=== PATIENT | male | born 1930 | race Caucasian/White ===

== ENCOUNTER 2016-06-23 11:31 | Inpatient (IN) | payer OTHER ==
[~2016-06-23] VITALS: Ht 182.9 cm; Wt 77.5 kg
[~2016-06-23 11:31] MED LIST: ATOR10TA88 PO; ATV/1 PO; BIMA0.01 OPB; BRIN1SUS OPB; LISI-725 PO; METO-217 PO; MULT-506 PO; OMEG10007 PO; PRS5 PO; TAMS0.4C38 PO; TIMO0.5S2 OPR
[2016-06-23 12:15] LABS: HEMATOCRIT 32.6 % (42-52); MEAN CELL VOLUME 83.6 fL (80-100); MEAN CORPUSCULAR HEMOGLOBIN 27.2 pg (25-34); MEAN CORPUSCULAR HGB CONC 32.5 g/dl (32-36); PLATELET COUNT 251 K/uL (130-400); WHITE BLOOD COUNT 10.16 K/uL (4.8-10.8)
[2016-06-23] MEDS ORDERED: SODIUM CHLORIDE 0.9% 250ML 250 ML IV SCH (12:15)
[2016-06-23 12:20] LABS: URINE APPEARANCE TURBID (CLEAR); URINE BILIRUBIN NEG (NEG); URINE COLOR DK YELLOW; URINE EPITHELIAL CELL AUTO 20-30 /lpf (0-5); URINE NITRITE NEG (NEG); URINE SPECIFIC GRAVITY 1.016 (1.000-1.030); UROBILINOGEN NEG (NEG); ZZURINE CULT IF INDIC CATH YES
[2016-06-23] MEDS ORDERED: SODIUM CHLORIDE 0.9% 1000ML 1,000 ML IV STA (12:21)
[2016-06-23 12:25] LABS: BUN/CREATININE RATIO 28.4 (10-20); CALCIUM 8.8 mg/dl (8.5-10.1); CREATININE 1.3 mg/dl (0.60-1.40); INR 1.6 (0.9-1.1); PARTIAL THROMBOPLASTIN RATIO 1.2; POTASSIUM 4.2 mmol/L (3.5-5.1); PROTHROMBIN TIME (PATIENT) 17.6 SECONDS (9.0-12.0)
[2016-06-23 12:28] LABS: ALB/GLOB RATIO 0.6 (0.9-2)
[2016-06-23 12:36] LABS: MANUAL MICROSCOPIC REQUIRED? NO; REVIEW REQ? YES
--- NOTE | 2016-06-23 12:57 | DIAGNOSTIC IMAGING REPORT ---
CHEST ONE VIEW PORTABLE CLINICAL HISTORY: Weakness COMPARISON STUDY: 06/14/2016 FINDINGS: There are postsurgical changes of a midline sternotomy. The heart is the upper limits of normal in size. There is a left subclavian single chamber central venous pacemaker. The patient is hyperinflated. There have been partial clearing of the previously described right basilar airspace opacities. There are no pleural effusions.[ IMPRESSION: Resolving right lower lobe airspace opacities. Hyperinflation. Electronically signed by: Martin Elizabeth M.D. 06/23/2016 12:55 PM
[2016-06-23] MEDS ORDERED: NYST80OI TOP (13:09)
--- NOTE | 2016-06-23 13:25 | DIAGNOSTIC IMAGING REPORT ---
CT HEAD WITHOUT CONTRAST (CT) CLINICAL HISTORY: LLE weakness COMPARISON STUDY: No previous studies for comparison. TECHNIQUE: Axial CT of the brain is performed from the vertex to the skull base. IV contrast was not administered for this examination. CT DOSE: 687.98 mGy.cm FINDINGS: No intra or extra-axial mass lesions are visualized. There is no CT evidence of acute cortical infarction. There is no evidence of midline shift. There is no acute hemorrhage. No calvarial fractures are visualized. There are moderate white matter hypodensities likely on a small vessel basis. 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 There is mild ventricular dilatation, proportional to degree of volume loss. There is no evidence of acute sinusitis IMPRESSION: No acute intracranial findings Electronically signed by: Martin Elizabeth M.D. 06/23/2016 1:24 PM
--- NOTE | 2016-06-23 14:59 | EMERGENCY ROOM VISIT NOTE ---
History Report prepared by Rex: Jory Carter Under the Supervision of: Dr. Gorge Almaraz D.O. First contact with patient: 12:03 Chief Complaint: NEURO SYMPTOMS Stated Complaint: WEAKNESS Nursing Triage Summary: fall at home 6 weeks ago, blind OD since, rehab at [facility]. here a few days ago for 5 day duration diarrhea. today rolled over upon awaking and unable to use left leg. was taken to P.T[facility] still unable to walk. has right sided facial droop, but endentulous. tongue midline. EOMI, crainial #3,5,7,11,12 intact. left leg weakness on push pull and unable to lift rom bed. exposed to flu at the [facility] medic states he knows the pt and his speech is off. pt states, "something isn' t right" History of Present Illness The patient is an 85 year old male arriving by ambulance from [facility] who presents to the Emergency Room for evaluation of neurological symptoms as he experienced a sudden onset of left leg weakness at 0600 this morning. Currently , patient states that his symptoms have seemed to resolved as he is now able to lift his leg normally as he was before. At the time of onset, patient states that he woke up this morning when he was suddenly unable to move his left leg. Patient then went to physical therapy and was unable to walk secondary to his weakness, so staff sent him to the ED for further evaluation. Patient states that he currently feels "cloudy", but he denies having pain anywhere. He also denies having a headache and he states that his speech sounds normal to him. Patient denies fevers, chills, cough, neck pain, chest pain, shortness of breath , abdominal pain, nausea, vomiting, or numbness/weakness anywhere else about his body. Patient states that he has been staying at [facility] for the past 6 weeks for rehabilitation of a fall. He also notes that he was recently seen in the ED a few days ago as he experienced 4 days of diarrhea (now resolved). Notes also mention that the patient has been exposed to the flu at the therapy center. Source of History: patient, [facility] notes Onset: 0600 this morning Position: leg (left) Symptom Intensity: no current pain or discomfort Quality: other (weakness) Timing: resolved Associated Symptoms: No SOB, No abdominal pain, No chest pain, No chills, No fevers, No headache, No nausea, No neck pain, No urinary symptoms, No vomiting Note: Patient states that he feels "cloudy". Review of Systems See HPI for pertinent positives & negatives. A total of 10 systems reviewed and were otherwise negative. 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 Surgical Problems: (1) Hx of CABG Family History FH: heart disease FATHER Social History Smoking Status: Former Smoker Drug Use: none Occupation Status: retired Current/Historical Medications Scheduled Atorvastatin (Lipitor), 10 MG PO HS Bimatoprost (Lumigan), 1 DROPS OP HS Brinzolamide Oph (Azopt Oph), 1 DROP OP HS Finasteride (Finasteride), 5 MG PO DAILY Fish Oil (Noonan-3), 1 CAP PO QAM Lisinopril (Zestril), 20 MG PO QAM Lorazepam (Ativan), 1 MG PO HS Metoprolol Succinate (Toprol Xl), 50 MG PO QAM Multivitamin (Multivitamin), 1 TAB PO QAM Nystatin (Topical) (Nystatin), 1 APPLN TOP BID Tamsulosin Hcl (Flomax), 0.4 MG PO QAM Timolol Gfs 0.5% Oph (Timoptic-Xe 0.5% Oph), 1 DROP OPR HS Allergies Coded Allergies: Gabapentin (Verified Allergy, Unknown, nightmares, 06/23/16) Sulfa Antibiotics (Verified Allergy, Unknown, REDNESS,SKIN LIKE BURN, ) Tramadol (Verified Allergy, Unknown, confusion, 06/23/16) Physical Exam Vital Signs Date Time Temp Pulse Resp B/P Pulse Ox O2 Delivery O2 Flow Rate FiO2 06/23/16 13:29 82 20 168/118 98 Room Air 06/23/16 13:27 150/66 06/23/16 12:59 102/70 06/23/16 12:51 84 06/23/16 12:29 140/67 06/23/16 12:27 81 06/23/16 12:21 82 20 06/23/16 12:16 86 27 98 06/23/16 12:11 84 22 97 Room Air 06/23/16 12:10 103/53 06/23/16 12:10 98 Room Air 06/23/16 12:10 36.8 82 20 101/49 98 Room Air 06/23/16 12:06 92 17 97 06/23/16 12:01 84 28 97 06/23/16 11:59 101/49 06/23/16 11:56 149 32 06/23/16 11:51 95 22 81 06/23/16 11:49 36.8 82 20 101/49 98 Room Air 06/23/16 11:49 98 Room Air 06/23/16 11:46 91 22 88 06/23/16 11:42 107/64 Physical Exam GENERAL: Patient is awake, alert, somewhat anxious but normal. EYES: The conjunctivae are clear. The pupils are round and reactive. EARS, NOSE, MOUTH AND THROAT: The nose is without any evidence of any deformity. Mucous membranes are dry, tongue is midline NECK: The neck is nontender and supple. RESPIRATORY: Normal respiratory effort is noted there is no evidence of wheezing rhonchi or rales CARDIOVASCULAR: Irregular rhythm noted to auscultation, but no definite murmur was appreciated. GASTROINTESTINAL: The abdomen is soft. Bowel sounds are present in all quadrants. Abdomen is nontender MUSCULOSKELETAL/EXTREMITIES: There is no evidence of gross deformity full range of motion is noted in the hips and shoulders SKIN: Pedal edema, bilaterally. There is no obvious evidence of any rash. There are no petechiae, pallor or cyanosis noted. NEUROLOGIC: Oriented to person, place, situation. Strength diminished in both lower extremities but symmetrical. 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 No facial droop noted. Medical Decision & Procedures ER Provider Diagnostic Interpretation: X-ray results as stated below per interpretation by me and the radiologist. CT results as stated below per my review and radiologist interpretation. CHEST ONE VIEW PORTABLE CLINICAL HISTORY: Weakness COMPARISON STUDY: 06/14/2016 FINDINGS: There are postsurgical changes of a midline sternotomy. The heart is the upper limits of normal in size. There is a left subclavian single chamber central venous pacemaker. The patient is hyperinflated. There have been partial clearing of the previously described right basilar airspace opacities. There are no pleural effusions.[ IMPRESSION: Resolving right lower lobe airspace opacities. Hyperinflation. Electronically signed by: Martin Elizabeth M.D. 06/23/2016 12:[address] HEAD WITHOUT CONTRAST (CT) CLINICAL HISTORY: LLE weakness COMPARISON STUDY: No previous studies for comparison. TECHNIQUE: Axial CT of the brain is performed from the vertex to the skull base. IV contrast was not administered for this examination. CT DOSE: 687.98 mGy.cm FINDINGS: No intra or extra-axial mass lesions are visualized. There is no CT evidence of acute cortical infarction. There is no evidence of midline shift. There is no acute hemorrhage. No calvarial fractures are visualized. There are moderate white matter hypodensities likely on a small vessel basis. 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 There is mild ventricular dilatation, proportional to degree of volume loss. There is no evidence of acute sinusitis IMPRESSION: No acute intracranial findings Electronically signed by: Martin Elizabeth M.D. 06/23/2016 1:24 PM Laboratory Results 06/23/16 11:40 06/23/16 11:40 Test 06/23/16 11:40 06/23/16 12:19 Red Blood Count 3.90 M/uL (4.7-6.1) Mean Corpuscular Volume 83.6 fL (80-100) Mean Corpuscular Hemoglobin 27.2 pg (25-34) Mean Corpuscular Hemoglobin Concent 32.5 g/dl (32-36) RDW Standard Deviation 51.3 fL (36.4-46.3) RDW Coefficient of Variation 16.9 % (11.5-14.5) Mean Platelet Volume 10.0 fL (7.4-10.4) Prothrombin Time 17.6 SECONDS (9.0-12.0) Prothromb Time International Ratio 1.6 (0.9-1.1) Activated Partial Thromboplast Time 30.2 SECONDS (21.0-31.0) Partial Thromboplastin Ratio 1.2 Urine Color DK YELLOW Urine Appearance TURBID (CLEAR) Urine pH 5.0 (4.5-7.5) Urine Specific [place] 1.016 (1.000-1.030) Urine Protein 1+ (NEG) Urine Glucose (UA) NEG (NEG) Urine Ketones NEG (NEG) Urine Occult Blood 3+ (NEG) Urine Nitrite NEG (NEG) Urine Bilirubin NEG (NEG) Urine Urobilinogen NEG (NEG) Urine Leukocyte Esterase LARGE (NEG) Urine WBC (Auto) >30 /hpf (0-5) Urine RBC (Auto) >30 /hpf (0-4) Urine Hyaline Casts (Auto) 1-5 /lpf (0-5) Urine Epithelial Cells (Auto) 20-30 /lpf (0-5) Urine Bacteria (Auto) 3+ (NEG) Urine Yeast (Auto) BUDDING (NONE PRSENT) Anion Gap 8.0 mmol/L (3-11) Est Creatinine Clear Calc Drug Dose 43.9 ml/min Estimated GFR () 56.9 Estimated GFR (Non- 49.1 BUN/Creatinine Ratio 28.4 (10-20) Calcium Level 8.8 mg/dl (8.5-10.1) Total Bilirubin 0.5 mg/dl (0.2-1) Aspartate Amino Transf (AST/SGOT) 17 U/L (15-37) Alanine Aminotransferase (ALT/SGPT) 28 U/L (12-78) Alkaline Phosphatase 70 U/L (45-117) Pro-B-Type Natriuretic Peptide 1758 pg/ml (0-1800) Total Protein 6.5 gm/dl (6.4-8.2) Albumin 2.5 gm/dl (3.4-5.0) Globulin 4.0 gm/dl (2.5-4.0) Albumin/Globulin Ratio 0.6 (0.9-2) Bedside Lactic Acid Venous 1.76 mmol/L (0.90-1.70) Laboratory results per my review. Medications Administered Medications (Trade) Dose Ordered Sig/Chung Route Start Time Stop Time Status Last Admin Dose Admin Sodium Chloride 250 ml @ 0 mls/hr Q0M IV 06/23/16 12:15 07/23/16 12:14 06/23/16 12:43 999 MLS/HR Sodium Chloride (Nss 1000ml) 1,000 ml @ 999 mls/hr Q1H1M STAT IV 06/23/16 12:21 06/23/16 13:21 DC 06/23/16 12:44 999 MLS/HR ECG Indication: weakness Rate (beats per minute): 91 Rhythm: atrial fibrillation Findings: other (No PVCs. Early transition.) Change: no significant change (when compared to EKG from 06/04/16.) ED Course 1212: The patient was evaluated in room C2. A complete history and physical examination were performed. 1215: NSS 250 ml IV was ordered. 1221: NSS bolus IV was ordered. 1430: Upon reevaluation, patient appeared to be doing well and was resting comfortably. Family was still in the room and stated that the patient's strength appeared to be at baseline. I updated them on the results of his workup. The hospitalist will be contacted. 1445: After discussion with Ana VEGA, the [facility] The patient and his family verbalized their understanding and agreement with this treatment plan. Medical Decision Differential diagnosis: Etiologies such as metabolic, infection, hypo/hyperglycemia, electrolyte abnormalities, cardiac sources, intracerebral event, toxicologic, neurologic, as well as others were entertained. Nursing notes reviewed. Additional history is obtained from the patient's family members. The patient is an 85-year-old male who presented to the emergency department for an evaluation of left lower extremity weakness. According the nursing the patient had a flaccid left leg. He was recently admitted to our facility for anemia. His INR was very elevated. He has a history of atrial fibrillation but his Coumadin was held because of this recent anemia and hematuria. The patient was found have an improving hemoglobin and he was also found have signs of dehydration. At this point he has no focal neurologic deficit. I discussed the patient's laboratory and radiographic studies with him and his family members. Because this is a high likelihood of being a TIA I discussed his [facility] They've agreed to evaluate the patient in the emergency department for further management and disposition. Consults Time Called: 1440 Consulting Physician: Ana VEGA - [facility] Returned Call: [phone] Discussed the patient's case. He will [facility] to [facility]. Impression Primary Impression: TIA (transient ischemic attack) Additional Impressions: Dehydration, Weakness Scribe Attestation The scribe's documentation has been prepared under my direction and personally reviewed by me in its entirety. I confirm that the note above accurately reflects all work, treatment, procedures, and medical decision making performed by me. Departure Information Dispostion Being Evaluated By Hospitalist ([place]) Maryjane Eastman M.D. (PCP)
[2016-06-23] MEDS ORDERED: PHARMACIST DISCHARGE MED REC CONSULT PRN (15:30)
[2016-06-23] MEDS ORDERED: ASPIRIN 81 MG ECTAB PO STA (15:42)
[2016-06-23] MEDS ORDERED: [UNRECOGNIZED DRUG - CODE] EXT (15:49)
[2016-06-23 19:00] VITALS: BP 112/58; PULSE 87; TEMP 36.5; O2SAT 97
--- NOTE | 2016-06-23 19:02 | DIAGNOSTIC IMAGING REPORT ---
BILATERAL CAROTID DOPPLER STUDY HISTORY: Mental status change Stroke COMPARISON: None. TECHNIQUE: Real-time, grayscale, and color Doppler sonography of the carotid arteries was performed. Imaging reviewed in the transverse and longitudinal planes. All measurements were calculated based on NASCET criteria. FINDINGS: Antegrade flow is seen in the bilateral vertebral arteries. The brachial pressures are hemodynamically similar. Moderate plaque formation bilaterally The peak systolic velocity within the right ICA is 152. The right systolic ratio is 2.7. The peak systolic velocity within the left ICA is 19. The left systolic ratio is 1.3. 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 Moderate plaque formation bilaterally Electronically signed by: Gary Long M.D. 06/23/2016 7:00 PM
[2016-06-23] MEDS ORDERED: NURSING VERBAL MED ORDER ONE (20:15)
[2016-06-23] MEDS ORDERED: LORAZEPAM 1 MG TAB ONE (20:20)
[2016-06-23] MEDS: NYSTATIN OINT 15 GM TUBE EXT SCH (20:22)
[2016-06-23] MEDS: BRINZOLAMIDE (AZOPT) OPS 10 ML BTL OPB SCH (20:22)
[2016-06-23] MEDS: ATORVASTATIN 10 MG TAB PO SCH (20:22)
[2016-06-23] MEDS: LORAZEPAM 1 MG TAB PO SCH (20:22)
[2016-06-23] MEDS: TIMOLOL GFS 0.5% OPH SOLN 74 DROPS/5 ML BTL OPR SCH (20:23)
[2016-06-23] MEDS: BIMATOPROST 0.01% OP SOLN 2.5 ML BTL OPB SCH (20:23)
[2016-06-23 20:30] VITALS: Ht 182.9 cm; Wt 77.5 kg
[2016-06-23] MEDS ORDERED: LORAZEPAM 1 MG TAB PO SCH (21:00)
[2016-06-23] MEDS ORDERED: GLUCOSE 40% GEL 15 GM TUBE PO PRN (23:00)
[2016-06-23] MEDS ORDERED: GLUCAGON FOR INJ 1 MG VIAL SQ PRN (23:00)
[2016-06-23] MEDS ORDERED: DEXTROSE 50% 50 ML SYR IV PRN (23:00)
[2016-06-23] MEDS ORDERED: GLUCOSE 10 TABS/TUBE PO PRN (23:00)
--- NOTE | 2016-06-23 23:00 | History and Physical ---
History & Physical Date & Time of Service: Jun 23, 2016 at 15:52 Chief Complaint: Weakness Primary Care Physician: John Saravia M.D. 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 Patient recently admitted from Jun 14- for hematuria in setting of supratherapeutic INR, acute on chronic anemia requiring 1 unit pRBC transfused. Patient's Coumadin was discontinued and aspirin held with plan to restart once H/H stable and hematuria resolved. He is planned for cystoscopy on 06/30/2016. After discharge to [facility] had gastroenteritis symptoms from - vomiting , diarrhea, fever 101.6, which resolved. Appetite still poor. He went to bed last night feeling at baseline with no focal weakness. Then he awoke at 6 am with left leg weakness, which worsened at 10 am while doing PT. He was seen by Dr. Saravia at correction and was noted to have mild L side facial droop, left arm and left leg focal weakness. Patient states weakness resolved at 12 pm. Family had noted facial droop intermittently in the past. Speech is at baseline. No swallowing difficulty, focal numbness, headache. Daughter at bedside who is a nurse states he has black stools for about 1 week. Not currently having gross hematuria. Past Medical/Surgical History Medical Problems: (1) Atrial fibrillation Status: Chronic (2) CAD (coronary artery disease) Status: Chronic (3) Dementia Status: Chronic (4) Diabetes mellitus Status: Chronic (5) Hyperlipidemia Status: Chronic (6) Hypertension Status: Chronic (7) Neurogenic bladder Status: Chronic (8) Pacemaker Status: Chronic (9) Prostate cancer Status: Chronic (10) Retinal artery occlusion Status: Chronic (11) Urinary bladder cancer Status: Chronic Surgical Problems: (1) Hx of CABG Status: Chronic Family History FH: heart disease FATHER Social History Smoking Status: Former Smoker Drug Use: none Housing status: correction Occupational Status: retired Allergies Coded Allergies: Gabapentin (Verified Allergy, Unknown, nightmares, 06/23/16) Sulfa Antibiotics (Verified Allergy, Unknown, REDNESS,SKIN LIKE BURN, ) Tramadol (Verified Allergy, Unknown, confusion, 06/23/16) Home Medications Scheduled Atorvastatin (Lipitor), 10 MG PO HS Bimatoprost (Lumigan), 1 DROPS OPB HS Brinzolamide Oph (Azopt Oph), 1 DROP OPB HS Finasteride (Finasteride), 5 MG PO DAILY Fish Oil (Palestine-3), 1 CAP PO QAM Lisinopril (Zestril), 20 MG PO QAM Lorazepam (Ativan), 1 MG PO HS Metoprolol Succinate (Toprol Xl), 50 MG PO QAM Multivitamin (Multivitamin), 1 TAB PO QAM Nystatin (Topical) (Nystatin), 1 APPLN TOP BID Tamsulosin Hcl (Flomax), 0.4 MG PO QAM Timolol Gfs 0.5% Oph (Timoptic-Xe 0.5% Oph), 1 DROP OPR HS Wound Dressings (Allevyn Adhesive), 1 APPLN EXT UD Review of Systems Constitutional: + fever (on - resolved), + weight loss (15 lb weight loss in 1 month) Eyes: + problem reported (chronic right eye blindness), No worsening of vision ENT: + nasal symptoms (rhinorrhea- unclear duration) Respiratory: + cough (dry cough- unclear duration), No shortness of breath Cardiovascular: No chest pain Abdomen: + problem reported (see HPI) Musculoskeletal: No muscle pain Genitourinary - Male: + problem reported (oreilly ) Neurologic: + problem reported (see HPI) Integumentary: + problem reported (abrasion on his right hip from falling on with no erythema or drainage.) Physical Exam Vital Signs Date Time Temp Pulse Resp B/P Pulse Ox O2 Delivery O2 Flow Rate FiO2 06/23/16 13:29 82 20 168/118 98 Room Air 06/23/16 13:27 150/66 06/23/16 12:59 102/70 06/23/16 12:51 84 06/23/16 12:29 140/67 06/23/16 12:27 81 06/23/16 12:21 82 20 06/23/16 12:16 86 27 98 06/23/16 12:11 84 22 97 Room Air 06/23/16 12:10 103/53 06/23/16 12:10 98 Room Air 06/23/16 12:10 36.8 82 20 101/49 98 Room Air 06/23/16 12:06 92 17 97 06/23/16 12:01 84 28 97 06/23/16 11:59 101/49 06/23/16 11:56 149 32 06/23/16 11:51 95 22 81 06/23/16 11:49 36.8 82 20 101/49 98 Room Air 06/23/16 11:49 98 Room Air 06/23/16 11:46 91 22 88 06/23/16 11:42 107/64 General Appearance: WD/WN, no apparent distress, + pertinent finding (alert cooperative elderly male, family at bedside) Head: normocephalic, atraumatic Eyes: normal inspection, PERRL, EOMI, + pertinent finding (right eye blind- chronic) ENT: normal ENT inspection, hearing grossly normal, pharynx normal Neck: supple, trachea midline Respiratory/Chest: lungs clear, normal breath sounds, no respiratory distress, no accessory muscle use Cardiovascular: no murmur, + irregularly irregular Abdomen/GI: normal bowel sounds, non tender, soft Genitourinary - Male: + pertinent finding (oreilly draining yellow urine) Extremities/Musculoskelatal: no calf tenderness, no pedal edema Neurologic/Psych: 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 ), alert, normal mood/affect, + pertinent finding (oriented to person and place, knows month but not year- baseline per family. finger to nose intact bilat) Skin: normal color, warm/dry, + pertinent finding (abrasion on right hip without erythema or drainage) Diagnostics Laboratory Results Results Past 24 Hours Test 06/23/16 11:40 06/23/16 12:19 Range/Units White Blood Count 10.16 4.8-10.8 K/uL Red Blood Count 3.90 4.7-6.1 M/uL Hemoglobin 10.6 14.0-18.0 g/dL Hematocrit 32.6 42-52 % Mean Corpuscular Volume 83.6 80-100 fL Mean Corpuscular Hemoglobin 27.2 25-34 pg Mean Corpuscular Hemoglobin Concent 32.5 32-36 g/dl RDW Standard Deviation 51.3 36.4-46.3 fL RDW Coefficient of Variation 16.9 11.5-14.5 % Platelet Count 251 130-400 K/uL Mean Platelet Volume 10.0 7.4-10.4 fL Prothrombin Time 17.6 9.0-12.0 SECONDS Prothromb Time International Ratio 1.6 0.9-1.1 Activated Partial Thromboplast Time 30.2 21.0-31.0 SECONDS Partial Thromboplastin Ratio 1.2 Urine Color DK YELLOW Urine Appearance TURBID CLEAR Urine pH 5.0 4.5-7.5 Urine Specific Wilmot 1.016 1.000-1.030 Urine Protein 1+ NEG Urine Glucose (UA) NEG NEG Urine Ketones NEG NEG Urine Occult Blood 3+ NEG Urine Nitrite NEG NEG Urine Bilirubin NEG NEG Urine Urobilinogen NEG NEG Urine Leukocyte Esterase LARGE NEG Urine WBC (Auto) >30 0-5 /hpf Urine RBC (Auto) >30 0-4 /hpf Urine Hyaline Casts (Auto) 1-5 0-5 /lpf Urine Epithelial Cells (Auto) 20-30 0-5 /lpf Urine Bacteria (Auto) 3+ NEG Urine Yeast (Auto) BUDDING NONE PRSENT Sodium Level 146 136-145 mmol/L Potassium Level 4.2 3.5-5.1 mmol/L Chloride Level 114 98-107 mmol/L Carbon Dioxide Level 24 21-32 mmol/L Anion Gap 8.0 3-11 mmol/L Blood Urea Nitrogen 37 7-18 mg/dl Creatinine 1.30 0.60-1.40 mg/dl Est Creatinine Clear Calc Drug Dose 43.9 ml/min Estimated GFR () 56.9 Estimated GFR (Non- 49.1 BUN/Creatinine Ratio 28.4 10-20 Random Glucose 117 70-99 mg/dl Calcium Level 8.8 8.5-10.1 mg/dl Total Bilirubin 0.5 0.2-1 mg/dl Aspartate Amino Transf (AST/SGOT) 17 15-37 U/L Alanine Aminotransferase (ALT/SGPT) 28 12-78 U/L Alkaline Phosphatase 70 45-117 U/L Pro-B-Type Natriuretic Peptide 1758 0-1800 pg/ml Total Protein 6.5 6.4-8.2 gm/dl Albumin 2.5 3.4-5.0 gm/dl Globulin 4.0 2.5-4.0 gm/dl Albumin/Globulin Ratio 0.6 0.9-2 Bedside Lactic Acid Venous 1.76 0.90-1.70 mmol/L Microbiology Results 06/23/16 Blood Culture, Received Pending 06/23/16 Blood Culture, Received Pending 06/23/16 Urine Culture, Received Pending Diagnostic Radiology CHEST ONE VIEW PORTABLE CLINICAL HISTORY: Weakness COMPARISON STUDY: 06/14/2016 FINDINGS: There are postsurgical changes of a midline sternotomy. The heart is the upper limits of normal in size. There is a left subclavian single chamber central venous pacemaker. The patient is hyperinflated. There have been partial clearing of the previously described right basilar airspace opacities. There are no pleural effusions.[ IMPRESSION: Resolving right lower lobe airspace opacities. Hyperinflation. CT HEAD WITHOUT CONTRAST (CT) CLINICAL HISTORY: LLE weakness COMPARISON STUDY: No previous studies for comparison. TECHNIQUE: Axial CT of the brain is performed from the vertex to the skull base. IV contrast was not administered for this examination. CT DOSE: 687.98 mGy.cm FINDINGS: No intra or extra-axial mass lesions are visualized. There is no CT evidence of acute cortical infarction. There is no evidence of midline shift. There is no acute hemorrhage. No calvarial fractures are visualized. There are moderate white matter hypodensities likely on a small vessel basis. 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 There is mild ventricular dilatation, proportional to degree of volume loss. There is no evidence of acute sinusitis IMPRESSION: No acute intracranial findings ] BILATERAL CAROTID DOPPLER STUDY HISTORY: Mental status change Stroke COMPARISON: None. TECHNIQUE: Real-time, grayscale, and color Doppler sonography of the carotid arteries was performed. Imaging reviewed in the transverse and longitudinal planes. All measurements were calculated based on NASCET criteria. FINDINGS: Antegrade flow is seen in the bilateral vertebral arteries. The brachial pressures are hemodynamically similar. Moderate plaque formation bilaterally The peak systolic velocity within the right ICA is 152. The right systolic ratio is 2.7. The peak systolic velocity within the left ICA is 19. The left systolic ratio is 1.3. 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 Moderate plaque formation bilaterally Check echo with bubble study Will restart aspirin 81 mg as not having gross hematuria and H/H stable Consult neurology PT, OT, speech evaluations Neuro checks UA ABNORMAL Has indwelling Oreilly UA shows occult blood, leuk esterase, WBC's, RBCs, epithelial cells, bacteria, yeast Afebrile, no leukocytosis Check urine culture ANEMIA Hg low as 7.9 last admission from acute blood loss from hematuria- has plan for cystoscopy on 06/30/2016 w/ Dr. 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 aGrcia. Please see his addendum. Attending Addendum Pt was seen and examined. Agree with Pippa's exam , assessment and plan. 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 General- very pleasant, no acute distress Head- atraumatic Eyes- PERRL, EOMI ENT- oropharynx clear Neck- supple, no JVD Lungs- clear to auscultation and percussion Heart- irregular rhythm Abdomen- normal bowel sounds, soft Extremities- no calf tenderness Neuro- alert, oriented PERRL, EOMI Skin- warm & dry A/P Left side weakness Possible related to TIA Symptoms resolved CT head- No acute stroke unable to get MRI due to pacemaker Will repeat CT in am Carotid doppler showed 50/60% narrowing right internal carotid artery. Moderate plaque formation bilaterally will get an echo Consult neuro start ASA but monitor h/h because pt was recently admitted due to hematuria. Consult neurology Lab, EKG, Imaging reviewed Please refer to Pippa's PA documentation for other problems. Tg Garcia MD VTE Prophylaxis VTE Risk Assessment Done? Y/N: Yes Risk Level: High
[2016-06-23 23:29] VITALS: BP 152/70; PULSE 76; TEMP 36.3; O2SAT 98
[2016-06-24 03:58] VITALS: BP 147/76; PULSE 64; TEMP 36.3; O2SAT 97
[2016-06-24 06:12] LABS: BASO % 0.1 %; BASO ABS # 0.01 K/uL (0-0.2); COMPLETE YES; EOS % 1.9 %; HEMATOCRIT 28.3 % (42-52); IG% 1.9 %; LYMPH % 22.2 %; MEAN CELL VOLUME 82.7 fL (80-100); MEAN CORPUSCULAR HEMOGLOBIN 26.9 pg (25-34); MEAN CORPUSCULAR HGB CONC 32.5 g/dl (32-36); MEAN PLATELET VOLUME 10.1 fL (7.4-10.4); MONO % 7.8 %; NEUT % 66.1 %; PLATELET COUNT 197 K/uL (130-400); RED BLOOD COUNT 3.42 M/uL (4.7-6.1)
[2016-06-24 06:49] LABS: ESTIMATED AVERAGE GLUCOSE 123 mg/dl; HA1C FLAG Normal (Normal)
[2016-06-24 06:52] LABS: CALCIUM 8.1 mg/dl (8.5-10.1); CHOLESTEROL/HDL RATIO 2.7; MAGNESIUM 2.2 mg/dl (1.8-2.4); POTASSIUM 3.5 mmol/L (3.5-5.1)
[2016-06-24 08:00] VITALS: BP 152/83; PULSE 74; TEMP 36.9; O2SAT 97
--- NOTE | 2016-06-24 08:49 | Clinical Documentation Query ---
CLINICAL DOCUMENTATION QUERY Dr. GUERRERO, In your clinical opinion is this patient being managed for: ( ) possible cerebral embolism causing embolic TIA in the setting of Afib requiring resumption of anticoagulation ( ) Other explanation of clinical findings (Please Explain) ( ) Unable to determine (Please Define) ( ) Need to Discuss ( ) Not Agree The medical record reflects the following clinical findings, treatment, and risk factors. Clinical Indicators: 85 yo male presenting with new onset of mild L sided facial droop, L arm and L leg focal weakness. Pt describes feeling "cloudy". Pt reported being unable to ambulate in PT session. Symptoms had improved by time of ER presentation/treatment. Pt recently taken off coumadin and ASA due to hematuria. Treatment: initial CT head with repeat in AM, carotid doppler, ECHO, restart ASA, neurology consult, neurochecks, tele monitoring Risk Factors: A fib, stopping of anticoagulation treatment due to hematuria An embolic TIA occurs when a blood clot or mass of blood cells forms somewhere in the body, breaks free then becomes lodged in one of the blood vessels in the brain. Risk factors for an embolic TIA are divided into 2 categories: high risk and low risk. The high risk category includes the following conditions: afib, rheumatic disease of the mitral/aortic valves, sick sinus syndrome, sustained A flutter, recent OR, symptomatic CHF with an EF of <30%, dilated cardiomyopathy, infectious endocarditis, s/p CABG. The low risk category includes: a calcified mitral valve and left ventricular aneurysm. The symptoms associated with an embolic TIA may mimic those associated with an embolic stroke: numbness of the extremities or face, confusion, "dimming" of vision, speech difficulty, loss of coordination, sudden severe headache. These neurological deficits typically clear within 24 hours of their onset How is it treated? Anticoagulation Please clarify and document your clinical opinion in the progress notes and discharge summary. Terms such as "probable", "suspected", "likely", "questionable", "possible", or "still to be ruled out" are acceptable. IF IN AGREEMENT, YOU MUST DOCUMENT ABOVE DIAGNOSTIC STATEMENT IN DAILY PROGRESS NOTES AND DISCHARGE SUMMARY. This document is not part of the patient's record. Thank You, Marivel Salas RN [phone]
[2016-06-24] MEDS: LISINOPRIL 20 MG TAB PO SCH (08:53)
[2016-06-24] MEDS: METOPROLOL SUCC 50MG EXT REL TAB PO SCH (08:53)
[2016-06-24] MEDS: MULTIVITAMIN TAB PO SCH (08:53)
[2016-06-24] MEDS: INSULIN ASPART 100 UNITS/ML 3 ML PEN SC SCH ×4 (08:54→21:00)
[2016-06-24] MEDS: TAMSULOSIN HCL 0.4 MG CAP PO SCH (08:54)
[2016-06-24] MEDS: FINASTERIDE 5 MG TAB PO SCH (08:54)
[2016-06-24] MEDS: NYSTATIN OINT 15 GM TUBE EXT SCH ×2 (08:55→21:07)
[2016-06-24] MEDS ORDERED: ASPIRIN 81 MG ECTAB PO SCH (09:00)
[2016-06-24 12:00] VITALS: BP 131/78; PULSE 80; TEMP 36.5; O2SAT 96
--- NOTE | 2016-06-24 13:54 | Neurology Consultation ---
Neurology Consultation Date of Consultation: Jun 24, 2016. Attending Physician: Tg Garcia M.D. Primary Care Physician: Maryjane August M.D. Reason for Consultation: TIA History of Present Illness Source: patient Masoud is an 85 year old male with a PMH of AF, CAD s/p CABG, DM, HTN, hyperlipidemia, Alzheimer's dementia, chronic oreilly catheter. He states he woke with LE weakness and it was notice during PT. He didn't tell the facility. He was then seen by Dr Saravia at [facility] who report a mild L sided facial droop, left arm and left leg weakness. The weakness resolved by around lunch time. he was admitted to [facility] for INR which was supratherapeutic acute anemia and was given 1 unit pRBc. His coumadin and aspirin were held during that visit. They were restarting once his H/H was stable. He had vomiting, diarrhea fever Jun 17 which resolved but his appetite is still poor. There is no family in room but it was reported he was having some black tarry stools for a week. denies CP, SOB, abdominal pain, current weakness, numbness, tingling, N, V, swallowing difficulty, aphasia. denies any previous stroke symptoms. 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 he had cataract surgery and afterward had a blood clot. he does have a pacemaker. Past Medical/Surgical History Medical Problems: (1) Dehydration Status: Acute (2) Pneumonia Status: Acute (3) Sepsis Status: Acute (4) TIA (transient ischemic attack) Status: Acute (5) Urinary tract infection Status: Acute (6) Weakness Status: Acute Social History Drug Use: none Occupation Status: retired Allergies Coded Allergies: Gabapentin (Verified Allergy, Unknown, nightmares, 06/23/16) Sulfa Antibiotics (Verified Allergy, Unknown, REDNESS,SKIN LIKE BURN, ) Tramadol (Verified Allergy, Unknown, confusion, 06/23/16) Current Inpatient Medications Current Inpatient Medications Medications (Trade) Dose Ordered Sig/Chung Route Start Time Stop Time Status Last Admin Dose Admin Miscellaneous Information (Pharmacist Discharge Med Rec Consult) 1 ea UD PRN N/A 06/23/16 15:30 07/23/16 15:29 Aspirin (Ecotrin Tab) 81 mg QAM PO 06/24/16 09:00 07/24/16 08:59 06/24/16 08:54 81 MG Atorvastatin Calcium (Lipitor Tab) 10 mg HS PO 06/23/16 21:00 07/23/16 20:59 06/23/16 20:22 10 MG Brinzolamide (Azopt) 1 drops HS OPB 06/23/16 21:00 07/23/16 20:59 06/23/16 20:22 1 DROPS Finasteride (Proscar Tab) 5 mg DAILY PO 06/24/16 09:00 07/24/16 08:59 06/24/16 08:54 5 MG Lisinopril (Zestril Tab) 20 mg QAM PO 06/24/16 09:00 07/24/16 08:59 06/24/16 08:53 20 MG Metoprolol Succinate (Toprol Xl Tab) 50 mg QAM PO 06/24/16 09:00 07/24/16 08:59 06/24/16 08:53 50 MG Multivitamins (Multivitamin Tab) 1 tab QAM PO 06/24/16 09:00 07/24/16 08:59 06/24/16 08:53 1 TAB Nystatin (Mycostatin Oint) 1 appln BID EXT 06/23/16 21:00 07/23/16 20:59 06/24/16 08:55 1 APPLN Tamsulosin HCl (Flomax Cap) 0.4 mg QAM PO 06/24/16 09:00 07/24/16 08:59 06/24/16 08:54 0.4 MG Bimatoprost (Lumigan 0.01%) 1 drops HS OPB 06/23/16 21:00 07/23/16 20:59 06/23/16 20:23 1 DROPS Miscellaneous Information (Order Awaiting Action) 1 ea QS N/A 06/23/16 20:00 07/23/16 19:59 Timolol Maleate (Timoptic-Xe 0.5% Oph Soln) 1 drops HS OPR 06/23/16 21:00 07/23/16 20:59 06/23/16 20:23 1 DROPS Lorazepam (Ativan Tab) 1 mg DAILY@1999 PO 06/24/16 20:00 07/24/16 19:59 Insulin Aspart (novoLOG ASPART) SLIDING SCALE If C... ACHS SC 06/24/16 06:30 07/24/16 06:29 06/24/16 12:48 2 UNITS Glucose (Glucose 40% Gel) 15-30 GRAMS 15 GRAMS... UD PRN PO 06/23/16 23:00 07/23/16 22:59 Glucose (Glucose Chew Tab) 4-8 Tablets 4 Tabl... UD PRN PO 06/23/16 23:00 07/23/16 22:59 Dextrose (Dextrose 50% 50ML Syringe) 25-50ML OF 50% DW IV FOR... UD PRN IV 06/23/16 23:00 07/23/16 22:59 Glucagon (Glucagon Inj) 1 mg UD PRN SQ 06/23/16 23:00 07/23/16 22:59 Physical Exam Vital Signs (Past 24 Hrs): Date Time Temp Pulse Resp B/P Pulse Ox O2 Delivery O2 Flow Rate FiO2 06/24/16 12:30 Room Air 06/24/16 12:00 36.5 80 16 131/78 96 Room Air 06/24/16 08:30 Room Air 06/24/16 08:00 36.9 74 18 152/83 97 Room Air 06/24/16 04:10 Room Air 06/24/16 03:58 36.3 64 21 147/76 97 Nasal Cannula 2.0 06/24/16 00:15 Room Air 06/23/16 23:29 36.3 76 22 152/70 98 Room Air 06/23/16 20:30 Room Air 06/23/16 19:00 36.5 87 20 112/58 97 Room Air 06/23/16 17:41 36.8 68 23 161/86 98 06/23/16 17:29 161/86 06/23/16 17:24 68 23 06/23/16 17:19 76 17 06/23/16 16:59 140/51 06/23/16 16:49 72 24 06/23/16 16:28 129/63 06/23/16 16:28 80 06/23/16 16:19 74 22 06/23/16 16:14 75 22 06/23/16 16:09 82 20 06/23/16 16:04 79 12 06/23/16 15:59 82 23 132/66 06/23/16 15:54 81 18 06/23/16 15:49 89 21 06/23/16 15:44 95 31 06/23/16 15:39 96 16 06/23/16 15:34 94 16 06/23/16 15:29 89 23 163/71 06/23/16 15:24 92 18 06/23/16 15:19 92 24 06/23/16 15:14 85 20 06/23/16 15:09 79 23 06/23/16 15:04 93 25 06/23/16 14:59 89 19 114/55 06/23/16 14:54 79 19 06/23/16 14:49 79 18 06/23/16 14:44 80 17 06/23/16 14:39 90 21 06/23/16 14:34 88 16 06/23/16 14:30 147/81 06/23/16 14:29 84 18 06/23/16 14:24 77 23 06/23/16 14:19 77 28 06/23/16 14:14 81 24 06/23/16 14:09 80 23 06/23/16 14:04 84 23 06/23/16 13:59 70 17 141/87 06/23/16 13:54 75 26 06/23/16 13:49 80 21 06/23/16 13:44 92 20 06/23/16 13:39 78 16 06/23/16 13:34 85 17 06/23/16 13:29 82 20 168/118 98 Room Air Physical Exam: Constitutional: appearance nourished, pale Ears, Nose, Mouth and Throat: mucous membranes moist, no injection and skin normal, eyes normal Cardiovascular: irregular Respiratory: clear to auscultation (CTA) and no rales, rhonchi or wheeze Musculoskeletal: no peripheral edema Skin: no stigmata of neurocutaneous disease noted and normal and intact Eyes: extraocular muscles intact (EOMI) and pupils equal, round and reactive to light (PERRL), miotic, gross peripheral vision intact NEUROLOGIC EXAMINATION: Mental status: Alert and interactive Oriented to [facility], 2017, Kartik elected president Oriented to person Speech fluent with no evidence of aphasia Cranial Nerves smile and eye brow raise symmetric, tongue midline Reflexes: Deep tendon reflexes decreased bilaterally LE Plantar responses were flexor. Sensory: decreased sensation LLE to vibration, cool touch to knee, GT proprioception decreased bilaterally Coordination: finger to nose without bi pass, or tremor Gait/Stance: lying in bed Motor: Negative for pronator drift of out stretched arms with eyes closed. Strength: biceps triceps hand brim rounder bilaterally 5/5, hip flex plantar flex ext 5/5 bilaterally Laboratory Results Past 24 Hours: 06/24/16 05:20 Red Blood Count 3.42, Mean Corpuscular Volume 82.7, Mean Corpuscular Hemoglobin 26.9, Mean Corpuscular Hemoglobin Concent 32.5, Mean Platelet Volume 10.1, Neutrophils (%) (Auto) 66.1, Lymphocytes (%) (Auto) 22.2, Monocytes (%) (Auto) 7.8, Eosinophils (%) (Auto) 1.9, Basophils (%) (Auto) 0.1, Neutrophils # (Auto) 5.36, Lymphocytes # (Auto) 1.80, Monocytes # (Auto) 0.63, Eosinophils # (Auto) 0.15, Basophils # (Auto) 0.01 06/24/16 05:20 Test 06/24/16 05:20 06/24/16 11:47 White Blood Count 8.10 K/uL (4.8-10.8) Red Blood Count 3.42 M/uL (4.7-6.1) Hemoglobin 9.2 g/dL (14.0-18.0) Hematocrit 28.3 % (42-52) Mean Corpuscular Volume 82.7 fL (80-100) Mean Corpuscular Hemoglobin 26.9 pg (25-34) Mean Corpuscular Hemoglobin Concent 32.5 g/dl (32-36) Platelet Count 197 K/uL (130-400) Mean Platelet Volume 10.1 fL (7.4-10.4) Neutrophils (%) (Auto) 66.1 % Lymphocytes (%) (Auto) 22.2 % Monocytes (%) (Auto) 7.8 % Eosinophils (%) (Auto) 1.9 % Basophils (%) (Auto) 0.1 % Neutrophils # (Auto) 5.36 K/uL (1.4-6.5) Lymphocytes # (Auto) 1.80 K/uL (1.2-3.4) Monocytes # (Auto) 0.63 K/uL (0.11-0.59) Eosinophils # (Auto) 0.15 K/uL (0-0.5) Basophils # (Auto) 0.01 K/uL (0-0.2) RDW Standard Deviation 50.1 fL (36.4-46.3) RDW Coefficient of Variation 16.6 % (11.5-14.5) Immature Granulocyte % (Auto) 1.9 % Immature Granulocyte # (Auto) 0.15 K/uL (0.00-0.02) Anion Gap 7.0 mmol/L (3-11) Est Creatinine Clear Calc Drug Dose 56.7 ml/min Estimated GFR () 78.1 Estimated GFR (Non- 67.4 BUN/Creatinine Ratio 32.0 (10-20) Calcium Level 8.1 mg/dl (8.5-10.1) Magnesium Level 2.2 mg/dl (1.8-2.4) Triglycerides Level 110 mg/dl (0-150) Cholesterol Level 67 mg/dl (0-200) HDL Cholesterol 25 mg/dl LDL Cholesterol, Calculated 20 mg/dl VLDL Cholesterol, Calculated 22 mg/dl Cholesterol/HDL Ratio 2.7 Bedside Glucose 96 mg/dl (70-99) Date/Time Source Procedure Growth Status 06/24/16 09:17 Nasal MRSA DNA Surveillance Screen - Final Specimen Negative for MRSA by DNA Probe Complete Imaging carotid doppler-50/60% narrowing right internal carotid artery. Moderate plaque formation bilaterally CT head- : No acute intracranial findings TTE -The left ventricle is mildly dilated. * Left ventricular systolic function is mildly reduced. * Ejection Fraction = 40-45%. * There is moderate to severe septal hypokinesis. * Apical wall motion abnormality may reflect pacemaker activation. * There is mild global hypokinesis of the left ventricle. * There is moderate concentric left ventricular hypertrophy. * Mild aortic regurgitation. * No hemodynamically significant valvular aortic stenosis. * There is moderate mitral regurgitation. * The left atrium is moderately dilated. * There is moderate tricuspid regurgitation. * The right atrium is moderately dilated. * Right ventricular systolic pressure is elevated at 40-50mmHg. * There is a pacemaker lead in the right ventricle. NO ASD Impression 85 year old with extensive PMH with new onset left side weakness-no resolved Plan 1. no bleed on CT head -unable to have MRI do to pacemaker 2. aspirin restarted at admission-watch h/h and hematuria 3. UA -UTI -treat to culture 4. defer to PCP and urology if coumadin would be option at some point - history of hematuria will need to weight effect and benefit 5. permissive hypertension 6. PT/OT/speech for any discharge needs 7. TTE no ASD 8. afib -no longer on coumadin due to fall risk and hematuria 9. further recommendations to follow I have seen and discussed above patient with Dr Mariah Márquez, neurology Pt seen and examined. TIA, Afib, off asa and coumadin bc of hematuria I see no current residual. Asa and coumadin had been on hold bc of hematuria. Asa has been restarted. If primary/urology think safe perhaps coumadin can be restarted in the future. CAMRON stenosis 50-60%, recommend follow-up carotid ultrasound in 1 year with referral to vascular surgery if stenosis is greater than 70%. MODESTO Márquez MD
--- NOTE | 2016-06-24 15:11 | ECHOCARDIOGRAM REPORT ---
*NOTICE TO RECEIVING [employer] This information is strictly Confidential and protected under [place] law. [place] law prohibits you from making any further disclosure of this information unless further disclosure is expressly permitted by the written consent of the person to whom it pertains or is authorized by law. A general authorization for the release of medical or other information is not sufficient for this purpose. Hospital accepts no responsibility if the information is made available to any other person, INCLUDING THE PATIENT. Interpretation Summary * Name: CHASE DURHAM Study Date: 06/24/2016 10:10 AM BP: 147/76 mmHg * Patient Location: .[facility]\S\N289\S\2 HR: 89 * : 1930 (M/d/yyyy) Gender: Male Height: 72 in * Age: 85 yrs Ethnicity: [place] Weight: 176 lb * Ordering Physician: Pippa Henriquez * Referring Physician: UNKNOWN * Performed By: Navya Orellana RCS * * Reason For Study: STROKE LIKE SYMPTOMS * BSA: 2.0 m2 * -- Conclusions -- * The left ventricle is mildly dilated. * Left ventricular systolic function is mildly reduced. * Ejection Fraction = 40-45%. * There is moderate to severe septal hypokinesis. * Apical wall motion abnormality may reflect pacemaker activation. * There is mild global hypokinesis of the left ventricle. * There is moderate concentric left ventricular hypertrophy. * Mild aortic regurgitation. * No hemodynamically significant valvular aortic stenosis. * There is moderate mitral regurgitation. * The left atrium is moderately dilated. * There is moderate tricuspid regurgitation. * The right atrium is moderately dilated. * Right ventricular systolic pressure is elevated at 40-50mmHg. * There is a pacemaker lead in the right ventricle. Procedure Details * A complete two-dimensional transthoracic echocardiogram was performed (2D, M-mode, Doppler and color flow Doppler). Left Ventricle * The left ventricle is mildly dilated. * There is moderate concentric left ventricular hypertrophy. * Left ventricular systolic function is mildly reduced. * Ejection Fraction = 40-45%. * There is moderate to severe septal hypokinesis. * Apical wall motion abnormality may reflect pacemaker activation. * There is mild global hypokinesis of the left ventricle. Right Ventricle * The right ventricle is normal in size and function. * There is a pacemaker lead in the right ventricle. Atria * The left atrium is moderately dilated. * The right atrium is moderately dilated. * The interatrial septum is intact with no evidence for an atrial septal defect. Mitral Valve * The mitral valve is normal in structure and function. * There is moderate mitral regurgitation. Tricuspid Valve * The tricuspid valve is normal in structure and function. * There is moderate tricuspid regurgitation. * Right ventricular systolic pressure is elevated at 40-50mmHg. Aortic Valve * Aortic valve sclerosis moderate, without significant aortic valvular stenosis. * No hemodynamically significant valvular aortic stenosis. * Mild aortic regurgitation. Pulmonic Valve * The pulmonary valve is not well seen, but the Doppler examination is normal without significant regurgitation or stenosis. * Mild pulmonic valvular regurgitation. Great Vessels * The aortic root is normal size. * No obvious dissection could be visualized. * The pulmonary artery is not well visualized, but is probably normal size. Pericardium/Pleural * There is no pericardial effusion. Great Vessels * Normal inferior vena cava diameter and respiratory variation suggests normal central venous pressure. MMode 2D Measurements and Calculations IVSd 1.8 cm IVSs 1.9 cm LVIDd 4.6 cm LVIDs 3.6 cm LVPWd 1.6 cm LVPWs 1.4 cm IVS/LVPW 1.1 FS 20.7 % EDV(Teich) 96.0 ml ESV(Teich) 55.3 ml EF(Teich) 42.3 % EDV(cubed) 95.6 ml ESV(cubed) 47.6 ml EF(cubed) 50.2 % % IVS thick 6.7 % % LVPW thick -12.30 % LV mass(C)d 332.5 grams LV mass(C)dI 164.8 grams/m\S\2 LV mass(C)s 232.8 grams LV mass(C)sI 115.4 grams/m\S\2 SV(Teich) 40.6 ml SI(Teich) 20.1 ml/m\S\2 SV(cubed) 48.0 ml SI(cubed) 23.8 ml/m\S\2 Ao root diam 4.3 cm Ao root area 14.3 cm\S\2 ACS 1.9 cm LA dimension 3.9 cm LA/Ao 0.92 LVOT diam 2.0 cm LVOT area 3.2 cm\S\2 LVAd ap4 30.5 cm\S\2 LVLd ap4 6.7 cm EDV(MOD-sp4) 111.4 ml EDV(sp4-el) 117.9 ml LVAs ap4 19.0 cm\S\2 LVLs ap4 6.0 cm ESV(MOD-sp4) 51.7 ml ESV(sp4-el) 51.2 ml EF(MOD-sp4) 53.6 % EF(sp4-el) 56.5 % LVAd ap2 29.7 cm\S\2 LVLd ap2 7.2 cm EDV(MOD-sp2) 101.0 ml EDV(sp2-el) 104.8 ml LVAs ap2 19.1 cm\S\2 LVLs ap2 5.7 cm ESV(MOD-sp2) 55.6 ml ESV(sp2-el) 53.9 ml EF(MOD-sp2) 45.0 % EF(sp2-el) 48.6 % LVLd %diff 6.5 % EDV(MOD-bp) 104.7 ml LVLs %diff -4.55 % ESV(MOD-bp) 54.1 ml EF(MOD-bp) 48.3 % SV(MOD-sp4) 59.7 ml SI(MOD-sp4) 29.6 ml/m\S\2 SV(MOD-sp2) 45.4 ml SI(MOD-sp2) 22.5 ml/m\S\2 SV(MOD-bp) 50.6 ml SI(MOD-bp) 25.1 ml/m\S\2 SV(sp4-el) 66.7 ml SI(sp4-el) 33.0 ml/m\S\2 SV(sp2-el) 50.9 ml SI(sp2-el) 25.2 ml/m\S\2 Doppler Measurements and Calculations MV E max shannan 97.6 cm/sec MV A max shannan 45.8 cm/sec MV E/A 2.1 MV P1/2t max shannan 110.6 cm/sec MV P1/2t 64.4 msec MVA(P1/2t) 3.4 cm\S\2 MV dec slope 503.1 cm/sec\S\2 MV dec time 0.23 sec Ao V2 max 115.4 cm/sec Ao max PG 5.3 mmHg Ao max PG (full) 3.8 mmHg KULWINDER(V,A) 1.7 cm\S\2 KULWINDER(V,D) 1.7 cm\S\2 AI max shannan 345.0 cm/sec AI max PG 47.7 mmHg AI dec slope 177.7 cm/sec\S\2 AI P1/2t 568.6 msec LV V1 max PG 1.6 mmHg LV V1 max 62.6 cm/sec PA V2 max 92.6 cm/sec PA max PG 3.4 mmHg PI max shannan 213.9 cm/sec PI max PG 18.3 mmHg PI dec slope 166.8 cm/sec\S\2 PI P1/2t 375.6 msec TR max shannan 285.6 cm/sec
[2016-06-24 15:41] VITALS: BP 149/63; PULSE 67; TEMP 36.6; O2SAT 97
[2016-06-24 16:00] VITALS: BP 123/61; PULSE 90; TEMP 36.5; O2SAT 95
--- NOTE | 2016-06-24 17:55 | DIAGNOSTIC IMAGING REPORT ---
CT HEAD WITHOUT CONTRAST (CT) CLINICAL HISTORY: Transient ischemic attack COMPARISON STUDY: 06/23/2016 TECHNIQUE: Axial CT of the brain is performed from the vertex to the skull base. IV contrast was not administered for this examination. CT DOSE: 537.48 mGy.cm FINDINGS: No intra or extra-axial mass lesions are visualized. There is no CT evidence of acute cortical infarction. There is no evidence of midline shift. There is no acute hemorrhage. No calvarial fractures are visualized. There are patchy white matter hypodensities likely on a small vessel basis. There is an old lacunar infarct within the right lentiform nucleus, left external capsule. There is mild ventricular prominence in proportion to the degree of volume loss. There is no evidence of acute sinusitis IMPRESSION: No acute intracranial findings Electronically signed by: Martin Elizabeth M.D. 06/24/2016 5:53 PM Dictated Date/Time: 06/24/2016 5:52 PM
[2016-06-24 19:50] VITALS: BP 145/73; PULSE 94; TEMP 36.4; O2SAT 98
--- NOTE | 2016-06-24 20:03 | Progress Note ---
Medicine Progress Note Date & Time of Visit: Jun 24, 2016 at 19:48. Subjective Pt was seen and examined Sitting at the edge of the bed eating Pt said that he feels good He said that he is back to baseline He denies any chest pain, palpitation, dizziness and SOB Objective Last 8 Hrs Date Time Temp Pulse Resp B/P Pulse Ox O2 Delivery O2 Flow Rate FiO2 06/24/16 16:00 Room Air 06/24/16 16:00 36.5 90 20 123/61 95 Room Air 06/24/16 15:41 36.6 67 18 149/63 97 Room Air 06/24/16 12:30 Room Air 06/24/16 12:00 36.5 80 16 131/78 96 Room Air Physical Exam: General- No acute distress, very pleasant Head- atraumatic Eyes- PERRL, EOMI ENT- oropharynx clear Neck- supple, no JVD Lungs- clear to auscultation and percussion Heart- regular rhythm Abdomen- normal bowel sounds, soft, nontender Neuro- alert, oriented x 3; PERRL, EOMI Skin- warm & dry Laboratory Results: Last 24 Hours Test 06/24/16 05:20 06/24/16 08:03 06/24/16 11:47 06/24/16 16:55 White Blood Count 8.10 K/uL Red Blood Count 3.42 M/uL Hemoglobin 9.2 g/dL Hematocrit 28.3 % Mean Corpuscular Volume 82.7 fL Mean Corpuscular Hemoglobin 26.9 pg Mean Corpuscular Hemoglobin Concent 32.5 g/dl Platelet Count 197 K/uL Mean Platelet Volume 10.1 fL Neutrophils (%) (Auto) 66.1 % Lymphocytes (%) (Auto) 22.2 % Monocytes (%) (Auto) 7.8 % Eosinophils (%) (Auto) 1.9 % Basophils (%) (Auto) 0.1 % Neutrophils # (Auto) 5.36 K/uL Lymphocytes # (Auto) 1.80 K/uL Monocytes # (Auto) 0.63 K/uL Eosinophils # (Auto) 0.15 K/uL Basophils # (Auto) 0.01 K/uL RDW Standard Deviation 50.1 fL RDW Coefficient of Variation 16.6 % Immature Granulocyte % (Auto) 1.9 % Immature Granulocyte # (Auto) 0.15 K/uL Sodium Level 148 mmol/L Potassium Level 3.5 mmol/L Chloride Level 117 mmol/L Carbon Dioxide Level 24 mmol/L Anion Gap 7.0 mmol/L Blood Urea Nitrogen 32 mg/dl Creatinine 1.00 mg/dl Est Creatinine Clear Calc Drug Dose 56.7 ml/min Estimated GFR () 78.1 Estimated GFR (Non- 67.4 BUN/Creatinine Ratio 32.0 Random Glucose 88 mg/dl Calcium Level 8.1 mg/dl Magnesium Level 2.2 mg/dl Triglycerides Level 110 mg/dl Cholesterol Level 67 mg/dl HDL Cholesterol 25 mg/dl LDL Cholesterol, Calculated 20 mg/dl VLDL Cholesterol, Calculated 22 mg/dl Cholesterol/HDL Ratio 2.7 Bedside Glucose 115 mg/dl 96 mg/dl 159 mg/dl Date/Time Source Procedure Growth Status 06/24/16 09:17 Nasal MRSA DNA Surveillance Screen - Final Specimen Negative for MRSA by DNA Probe Complete Assessment & Plan Stroke like symptoms CT head- No acute stroke, 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 Moderate plaque formation bilaterally Symptoms resolved Continue aspirin 81 mg H/H stable Neurology consulted Continue PT/OT eval ECHO done Conclusions -- * The left ventricle is mildly dilated. * Left ventricular systolic function is mildly reduced. * Ejection Fraction = 40-45%. * There is moderate to severe septal hypokinesis. * Apical wall motion abnormality may reflect pacemaker activation. * There is mild global hypokinesis of the left ventricle. * There is moderate concentric left ventricular hypertrophy. * Mild aortic regurgitation. * No hemodynamically significant valvular aortic stenosis. * There is moderate mitral regurgitation. * The left atrium is moderately dilated. * There is moderate tricuspid regurgitation. * The right atrium is moderately dilated. * Right ventricular systolic pressure is elevated at 40-50mmHg. * There is a pacemaker lead in the right ventricle. UA ABNORMAL Has indwelling Rojas UA shows occult blood, leuk esterase, WBC's, RBCs, epithelial cells, bacteria, yeast Afebrile, no leukocytosis Urine cx grew yeast will give Diflucan x1 ANEMIA Hg low as 7.9 last admission from acute blood loss from hematuria- has plan for cystoscopy on 06/30/2016 w/ Dr. 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 mid May Consult wound care nurse DVT PROPHYLAXIS SCD's due to recent hematuria, black stools CODE STATUS DNR Current Inpatient Medications: Current Inpatient Medications Medications (Trade) Dose Ordered Sig/Chung Route Start Time Stop Time Status Last Admin Dose Admin Miscellaneous Information (Pharmacist Discharge Med Rec Consult) 1 ea UD PRN N/A 06/23/16 15:30 07/23/16 15:29 Aspirin (Ecotrin Tab) 81 mg QAM PO 06/24/16 09:00 07/24/16 08:59 06/24/16 08:54 81 MG Atorvastatin Calcium (Lipitor Tab) 10 mg HS PO 06/23/16 21:00 07/23/16 20:59 06/23/16 20:22 10 MG Brinzolamide (Azopt) 1 drops HS OPB 06/23/16 21:00 07/23/16 20:59 06/23/16 20:22 1 DROPS Finasteride (Proscar Tab) 5 mg DAILY PO 06/24/16 09:00 07/24/16 08:59 06/24/16 08:54 5 MG Lisinopril (Zestril Tab) 20 mg QAM PO 06/24/16 09:00 07/24/16 08:59 06/24/16 08:53 20 MG Metoprolol Succinate (Toprol Xl Tab) 50 mg QAM PO 06/24/16 09:00 07/24/16 08:59 06/24/16 08:53 50 MG Multivitamins (Multivitamin Tab) 1 tab QAM PO 06/24/16 09:00 07/24/16 08:59 06/24/16 08:53 1 TAB Nystatin (Mycostatin Oint) 1 appln BID EXT 06/23/16 21:00 07/23/16 20:59 06/24/16 08:55 1 APPLN Tamsulosin HCl (Flomax Cap) 0.4 mg QAM PO 06/24/16 09:00 07/24/16 08:59 06/24/16 08:54 0.4 MG Bimatoprost (Lumigan 0.01%) 1 drops HS OPB 06/23/16 21:00 07/23/16 20:59 06/23/16 20:23 1 DROPS Miscellaneous Information (Order Awaiting Action) 1 ea QS N/A 06/23/16 20:00 07/23/16 19:59 Timolol Maleate (Timoptic-Xe 0.5% Oph Soln) 1 drops HS OPR 06/23/16 21:00 07/23/16 20:59 06/23/16 20:23 1 DROPS Lorazepam (Ativan Tab) 1 mg DAILY@1999 PO 06/24/16 20:00 07/24/16 19:59 Insulin Aspart (novoLOG ASPART) SLIDING SCALE If C... ACHS SC 06/24/16 06:30 07/24/16 06:29 06/24/16 18:18 2 UNITS Glucose (Glucose 40% Gel) 15-30 GRAMS 15 GRAMS... UD PRN PO 06/23/16 23:00 07/23/16 22:59 Glucose (Glucose Chew Tab) 4-8 Tablets 4 Tabl... UD PRN PO 06/23/16 23:00 07/23/16 22:59 Dextrose (Dextrose 50% 50ML Syringe) 25-50ML OF 50% DW IV FOR... UD PRN IV 06/23/16 23:00 07/23/16 22:59 Glucagon (Glucagon Inj) 1 mg UD PRN SQ 06/23/16 23:00 07/23/16 22:59
[2016-06-24] MEDS: LORAZEPAM 1 MG TAB PO SCH (21:07)
[2016-06-24] MEDS: BRINZOLAMIDE (AZOPT) OPS 10 ML BTL OPB SCH (21:07)
[2016-06-24] MEDS: TIMOLOL GFS 0.5% OPH SOLN 74 DROPS/5 ML BTL OPR SCH (21:08)
[2016-06-24] MEDS: BIMATOPROST 0.01% OP SOLN 2.5 ML BTL OPB SCH (21:08)
[2016-06-24] MEDS: ATORVASTATIN 10 MG TAB PO SCH (21:08)
[2016-06-25] VITALS (10 sets, daily range): BP systolic 128–184; BP diastolic 69–90; PULSE 61–89; TEMP 36.3–36.8; O2SAT 95–98
[2016-06-25] MEDS: METOPROLOL SUCC 50MG EXT REL TAB PO SCH (07:30)
[2016-06-25] MEDS: MULTIVITAMIN TAB PO SCH (07:31)
[2016-06-25] MEDS: LISINOPRIL 20 MG TAB PO SCH (07:31)
[2016-06-25] MEDS: TAMSULOSIN HCL 0.4 MG CAP PO SCH (07:31)
[2016-06-25] MEDS: FINASTERIDE 5 MG TAB PO SCH (07:32)
[2016-06-25] MEDS: NYSTATIN OINT 15 GM TUBE EXT SCH (07:32)
[2016-06-25 07:59] LABS: BASO % 0.4 %; BASO ABS # 0.03 K/uL (0-0.2); COMPLETE YES; HEMATOCRIT 30.4 % (42-52); LYMPH ABS # 1.45 K/uL (1.2-3.4); MEAN CELL VOLUME 83.5 fL (80-100); MEAN CORPUSCULAR HEMOGLOBIN 27.2 pg (25-34); MEAN CORPUSCULAR HGB CONC 32.6 g/dl (32-36); MEAN PLATELET VOLUME 9.9 fL (7.4-10.4); MONO % 9.4 %; NEUT % 69.2 %; PLATELET COUNT 212 K/uL (130-400); RED BLOOD COUNT 3.64 M/uL (4.7-6.1); WHITE BLOOD COUNT 8.52 K/uL (4.8-10.8)
[2016-06-25] MEDS: INSULIN ASPART 100 UNITS/ML 3 ML PEN SC SCH ×2 (08:00→12:07)
[2016-06-25 08:26] LABS: BUN/CREATININE RATIO 25.8 (10-20); CALCIUM 8.4 mg/dl (8.5-10.1); CREATININE 1.1 mg/dl (0.60-1.40); POTASSIUM 3.7 mmol/L (3.5-5.1)
--- NOTE | 2016-06-25 14:09 | Neurology Progress Notes ---
Neurology Progress Note Date of Service Jun 25, 2016. Ej Meredith is an 85 year old male with a PMH of AF, CAD s/p CABG, DM, HTN, hyperlipidemia, Alzheimer's dementia, chronic oreilly catheter. He states he woke with LE weakness and it was notice during PT. He didn't tell the facility. He was then seen by Dr Saravia at [facility] who report a mild L sided facial droop, left arm and left leg weakness. The weakness resolved by around lunch time. he was admitted to [facility] for INR which was supratherapeutic acute anemia and was given 1 unit pRBc. His coumadin and aspirin were held during that visit. They were restarting once his H/H was stable. He had vomiting, diarrhea fever Jun 17 which resolved but his appetite is still poor. There is no family in room but it was reported he was having some black tarry stools for a week.. denies any previous stroke symptoms. 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 he had cataract surgery and afterward had a blood clot. he does have a pacemaker. He is currently getting ready to walk with PT. He states he is doing well with no complaints and wants to go back to [facility]. denies CP, SOB, abdominal pain , current weakness, numbness, tingling, N, V, swallowing difficulty, aphasia Objective Date Time Temp Pulse Resp B/P Pulse Ox O2 Delivery O2 Flow Rate FiO2 06/25/16 12:05 36.5 61 20 128/74 98 Room Air 06/25/16 12:00 Room Air 06/25/16 09:00 130/69 06/25/16 08:00 96 Room Air 06/25/16 07:26 36.4 89 20 184/77 96 Room Air 06/25/16 05:25 36.7 75 16 153/70 95 Room Air 06/25/16 04:15 Room Air 06/25/16 01:14 36.3 67 18 145/78 95 Room Air 06/25/16 00:15 Room Air 06/24/16 20:00 Room Air 06/24/16 19:50 36.4 94 20 145/73 98 Room Air 06/24/16 16:00 Room Air 06/24/16 16:00 36.5 90 20 123/61 95 Room Air 06/24/16 15:41 36.6 67 18 149/63 97 Room Air Last 24 Hours Test 06/24/16 16:55 06/24/16 20:56 06/25/16 07:25 06/25/16 07:34 Bedside Glucose 159 mg/dl 90 mg/dl 97 mg/dl White Blood Count 8.52 K/uL Red Blood Count 3.64 M/uL Hemoglobin 9.9 g/dL Hematocrit 30.4 % Mean Corpuscular Volume 83.5 fL Mean Corpuscular Hemoglobin 27.2 pg Mean Corpuscular Hemoglobin Concent 32.6 g/dl Platelet Count 212 K/uL Mean Platelet Volume 9.9 fL Neutrophils (%) (Auto) 69.2 % Lymphocytes (%) (Auto) 17.0 % Monocytes (%) (Auto) 9.4 % Eosinophils (%) (Auto) 2.0 % Basophils (%) (Auto) 0.4 % Neutrophils # (Auto) 5.90 K/uL Lymphocytes # (Auto) 1.45 K/uL Monocytes # (Auto) 0.80 K/uL Eosinophils # (Auto) 0.17 K/uL Basophils # (Auto) 0.03 K/uL RDW Standard Deviation 50.8 fL RDW Coefficient of Variation 16.7 % Immature Granulocyte % (Auto) 2.0 % Immature Granulocyte # (Auto) 0.17 K/uL Sodium Level 149 mmol/L Potassium Level 3.7 mmol/L Chloride Level 117 mmol/L Carbon Dioxide Level 25 mmol/L Anion Gap 7.0 mmol/L Blood Urea Nitrogen 28 mg/dl Creatinine 1.10 mg/dl Est Creatinine Clear Calc Drug Dose 51.9 ml/min Estimated GFR () 69.6 Estimated GFR (Non- 60.0 BUN/Creatinine Ratio 25.8 Random Glucose 93 mg/dl Calcium Level 8.4 mg/dl Test 06/25/16 11:51 Bedside Glucose 177 mg/dl Imaging: CT head repeated no acute hemorrhage Exam: Gen: alert NAD lungs CTA CV irregular stands with minimal assistance from bed tandem gait walking with a walker Current Inpatient Medications Medications (Trade) Dose Ordered Sig/Chung Route Start Time Stop Time Status Last Admin Dose Admin Atorvastatin Calcium (Lipitor Tab) 10 mg HS PO 06/23/16 21:00 07/23/16 20:59 06/24/16 21:08 10 MG Brinzolamide (Azopt) 1 drops HS OPB 06/23/16 21:00 07/23/16 20:59 06/24/16 21:07 1 DROPS Finasteride (Proscar Tab) 5 mg DAILY PO 06/24/16 09:00 07/24/16 08:59 06/25/16 07:32 5 MG Lisinopril (Zestril Tab) 20 mg QAM PO 06/24/16 09:00 07/24/16 08:59 06/25/16 07:31 20 MG Metoprolol Succinate (Toprol Xl Tab) 50 mg QAM PO 06/24/16 09:00 07/24/16 08:59 06/25/16 07:30 50 MG Multivitamins (Multivitamin Tab) 1 tab QAM PO 06/24/16 09:00 07/24/16 08:59 06/25/16 07:31 1 TAB Nystatin (Mycostatin Oint) 1 appln BID EXT 06/23/16 21:00 07/23/16 20:59 06/25/16 07:32 1 APPLN Tamsulosin HCl (Flomax Cap) 0.4 mg QAM PO 06/24/16 09:00 07/24/16 08:59 06/25/16 07:31 0.4 MG Bimatoprost (Lumigan 0.01%) 1 drops HS OPB 06/23/16 21:00 07/23/16 20:59 06/24/16 21:08 1 DROPS Miscellaneous Information (Order Awaiting Action) 1 ea QS N/A 06/23/16 20:00 07/23/16 19:59 Timolol Maleate (Timoptic-Xe 0.5% Oph Soln) 1 drops HS OPR 06/23/16 21:00 07/23/16 20:59 06/24/16 21:08 1 DROPS Lorazepam (Ativan Tab) 1 mg DAILY@1999 PO 06/24/16 20:00 07/24/16 19:59 06/24/16 21:07 1 MG Insulin Aspart (novoLOG ASPART) SLIDING SCALE If C... ACHS SC 06/24/16 06:30 07/24/16 06:29 06/25/16 12:07 3 UNITS Glucose (Glucose 40% Gel) 15-30 GRAMS 15 GRAMS... UD PRN PO 06/23/16 23:00 07/23/16 22:59 Glucose (Glucose Chew Tab) 4-8 Tablets 4 Tabl... UD PRN PO 06/23/16 23:00 07/23/16 22:59 Dextrose (Dextrose 50% 50ML Syringe) 25-50ML OF 50% DW IV FOR... UD PRN IV 06/23/16 23:00 07/23/16 22:59 Glucagon (Glucagon Inj) 1 mg UD PRN SQ 06/23/16 23:00 07/23/16 22:59 Impression 85 year old with extensive PMH with new onset left side weakness-no resolved Plan 1. no bleed on CT head -unable to have MRI do to pacemaker 2. aspirin restarted at admission-watch h/h and hematuria 3. UA -UTI -treat to culture 4. defer to PCP and urology if coumadin would be option at some point - history of hematuria will need to weight effect and benefit 5. permissive hypertension 6. PT/OT/speech for any discharge needs 7. TTE no ASD 8. afib -no longer on coumadin due to fall risk and hematuria I have seen and discussed above patient with Dr Mp Abdalla, neurology Patient seen and discussed with both Mariah Cole and Tg Harkins MD He is to return to his care facility today on only asa exam is assumedly at his baseline dementia with minimal if any left sided deficits and no evience for a new cerebrovascular event on imaging studies Mp Abdalla MD
--- NOTE | 2016-06-25 16:26 | Progress Note ---
Medicine Progress Note Date & Time of Visit: Jun 25, 2016 at 16:12. Subjective Pt was seen and examined Sitting in bed very comfortable eating lunch Pt said that he feels good he said that he is ready to discharge denies any chest pain, weakness, palpitation, dizziness Objective Last 8 Hrs Date Time Temp Pulse Resp B/P Pulse Ox O2 Delivery O2 Flow Rate FiO2 06/25/16 15:42 36.8 78 20 95 Room Air 06/25/16 15:41 157/74 06/25/16 15:14 36.8 78 20 169/90 95 Room Air 06/25/16 12:05 36.5 61 20 128/74 98 Room Air 06/25/16 12:00 Room Air 06/25/16 09:00 130/69 Physical Exam: General- No acute distress, very pleasant Head- atraumatic Eyes- PERRL, EOMI ENT- oropharynx clear Neck- supple, no JVD Lungs- clear to auscultation and percussion Heart- regular rhythm Abdomen- normal bowel sounds, soft, nontender Neuro- alert, oriented x 3; PERRL, EOMI Skin- warm & dry Laboratory Results: Last 24 Hours Test 06/24/16 16:55 06/24/16 20:56 06/25/16 07:25 06/25/16 07:34 Bedside Glucose 159 mg/dl 90 mg/dl 97 mg/dl White Blood Count 8.52 K/uL Red Blood Count 3.64 M/uL Hemoglobin 9.9 g/dL Hematocrit 30.4 % Mean Corpuscular Volume 83.5 fL Mean Corpuscular Hemoglobin 27.2 pg Mean Corpuscular Hemoglobin Concent 32.6 g/dl Platelet Count 212 K/uL Mean Platelet Volume 9.9 fL Neutrophils (%) (Auto) 69.2 % Lymphocytes (%) (Auto) 17.0 % Monocytes (%) (Auto) 9.4 % Eosinophils (%) (Auto) 2.0 % Basophils (%) (Auto) 0.4 % Neutrophils # (Auto) 5.90 K/uL Lymphocytes # (Auto) 1.45 K/uL Monocytes # (Auto) 0.80 K/uL Eosinophils # (Auto) 0.17 K/uL Basophils # (Auto) 0.03 K/uL RDW Standard Deviation 50.8 fL RDW Coefficient of Variation 16.7 % Immature Granulocyte % (Auto) 2.0 % Immature Granulocyte # (Auto) 0.17 K/uL Sodium Level 149 mmol/L Potassium Level 3.7 mmol/L Chloride Level 117 mmol/L Carbon Dioxide Level 25 mmol/L Anion Gap 7.0 mmol/L Blood Urea Nitrogen 28 mg/dl Creatinine 1.10 mg/dl Est Creatinine Clear Calc Drug Dose 51.9 ml/min Estimated GFR () 69.6 Estimated GFR (Non- 60.0 BUN/Creatinine Ratio 25.8 Random Glucose 93 mg/dl Calcium Level 8.4 mg/dl Test 06/25/16 11:51 Bedside Glucose 177 mg/dl Assessment & Plan Stroke like symptoms Possible TIA. Symptoms resolved. 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 Moderate plaque formation bilaterally Symptoms resolved D/C aspirin yesterday because hgb dropped to 9.2 recent admission for hematuria, schedule for cystoscopy on 06/30 Can be assessed by PCP if cysto negative and hemoglobin stable to consider to restart ASA or coumadin Today Hgb 9.9 Neurology consulted Continue PT/OT eval ECHO done Conclusions -- * The left ventricle is mildly dilated. * Left ventricular systolic function is mildly reduced. * Ejection Fraction = 40-45%. * There is moderate to severe septal hypokinesis. * Apical wall motion abnormality may reflect pacemaker activation. * There is mild global hypokinesis of the left ventricle. * There is moderate concentric left ventricular hypertrophy. * Mild aortic regurgitation. * No hemodynamically significant valvular aortic stenosis. * There is moderate mitral regurgitation. * The left atrium is moderately dilated. * There is moderate tricuspid regurgitation. * The right atrium is moderately dilated. * Right ventricular systolic pressure is elevated at 40-50mmHg. * There is a pacemaker lead in the right ventricle. Right Carotid Stenosis carotid u/s showed 50/60% narrowing right internal carotid artery. Moderate plaque formation bilaterally Finding discussed with daughter Will need to follow yearly and if stenosis is greater than 70% to refer to vascular UA ABNORMAL Has indwelling [place] UA shows occult blood, leuk esterase, WBC's, RBCs, epithelial cells, bacteria, yeast Afebrile, no leukocytosis Urine cx grew yeast Asymptomatic. No treatment ANEMIA Hg low as 7.9 last admission from acute blood loss from hematuria- has plan for cystoscopy on 06/30/2016 w/ Dr. Dias Hg on admission 10.6 today hgb 9.9 Continue to hold on aspirin. 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 Consult wound care nurse DVT PROPHYLAXIS SCD's due to recent hematuria, black stools CODE STATUS DNR Disposition Continue PT/OT Pt is going back to [facility] Current Inpatient Medications: Current Inpatient Medications Medications (Trade) Dose Ordered Sig/Chung Route Start Time Stop Time Status Last Admin Dose Admin Atorvastatin Calcium (Lipitor Tab) 10 mg HS PO 06/23/16 21:00 07/23/16 20:59 06/24/16 21:08 10 MG Brinzolamide (Azopt) 1 drops HS OPB 06/23/16 21:00 07/23/16 20:59 06/24/16 21:07 1 DROPS Finasteride (Proscar Tab) 5 mg DAILY PO 06/24/16 09:00 07/24/16 08:59 06/25/16 07:32 5 MG Lisinopril (Zestril Tab) 20 mg QAM PO 06/24/16 09:00 07/24/16 08:59 06/25/16 07:31 20 MG Metoprolol Succinate (Toprol Xl Tab) 50 mg QAM PO 06/24/16 09:00 07/24/16 08:59 06/25/16 07:30 50 MG Multivitamins (Multivitamin Tab) 1 tab QAM PO 06/24/16 09:00 07/24/16 08:59 06/25/16 07:31 1 TAB Nystatin (Mycostatin Oint) 1 appln BID EXT 06/23/16 21:00 07/23/16 20:59 06/25/16 07:32 1 APPLN Tamsulosin HCl (Flomax Cap) 0.4 mg QAM PO 06/24/16 09:00 07/24/16 08:59 06/25/16 07:31 0.4 MG Bimatoprost (Lumigan 0.01%) 1 drops HS OPB 06/23/16 21:00 07/23/16 20:59 06/24/16 21:08 1 DROPS Miscellaneous Information (Order Awaiting Action) 1 ea QS N/A 06/23/16 20:00 07/23/16 19:59 Timolol Maleate (Timoptic-Xe 0.5% Oph Soln) 1 drops HS OPR 06/23/16 21:00 07/23/16 20:59 06/24/16 21:08 1 DROPS Lorazepam (Ativan Tab) 1 mg DAILY@1999 PO 06/24/16 20:00 07/24/16 19:59 06/24/16 21:07 1 MG Insulin Aspart (novoLOG ASPART) SLIDING SCALE If C... ACHS SC 06/24/16 06:30 07/24/16 06:29 06/25/16 12:07 3 UNITS Glucose (Glucose 40% Gel) 15-30 GRAMS 15 GRAMS... UD PRN PO 06/23/16 23:00 07/23/16 22:59 Glucose (Glucose Chew Tab) 4-8 Tablets 4 Tabl... UD PRN PO 06/23/16 23:00 07/23/16 22:59 Dextrose (Dextrose 50% 50ML Syringe) 25-50ML OF 50% DW IV FOR... UD PRN IV 06/23/16 23:00 07/23/16 22:59 Glucagon (Glucagon Inj) 1 mg UD PRN SQ 06/23/16 23:00 07/23/16 22:59
--- NOTE | 2016-06-25 16:33 | Discharge Instructions ---
Discharge Instructions Admission Reason for Admission: Stroke-Like Symptoms Discharge Discharge Diagnosis / Problem: TIA, Right carotid artery stenosis, Anemia, Afib Discharge Goals Goal(s): Decrease discomfort, Improve function, Improve disease control Activity Recommendations Activity Limitations: resume your previous activity (as tolerated) . Instructions / Follow-Up Instructions / Follow-Up Discharge to [facility] Continue PT/OT eval Follow up on right internal carotid artery narrowing with carotid u/s in 6 to 12 months fall precaution Current Hospital Diet Patient's current hospital diet: Regular Diet Discharge Diet Recommended Diet: AHA Diet (Heart Healthy), Low Sodium Diet (2gm Na) Pending Studies Studies pending at discharge: no Laboratory Results Hemoglobin A1c Test 06/23/16 11:40 Range/Units Estimated Average Glucose 123 mg/dl Hemoglobin A1c 5.9 H 4.5-5.6 % Lipid Panel Test 06/24/16 05:20 Range/Units Triglycerides Level 110 0-150 mg/dl Cholesterol Level 67 0-200 mg/dl HDL Cholesterol 25 mg/dl Cholesterol/HDL Ratio 2.7 LDL Cholesterol, Calculated 20 mg/dl Medical Emergencies . Who to Call and When: Medical Emergencies: If at any time you feel your situation is an emergency, please call 911 immediately. . Non-Emergent Contact Non-Emergency issues call your: Primary Care Provider Call Non-Emergent contact if: you have any medication questions . . "Provider Documentation" section prepared by Tg Garcia. VTE Core Measure Inpt VTE Proph given/why not?: SCD's
--- NOTE | 2016-06-28 00:01 | Discharge Summary ---
Discharge Summary Admission Date: Jun 23, 2016 at 15:21 Discharge Date: Jun 25, 2016 Discharge Disposition: Rehab Principal Diagnosis: Stroke like symptoms Secondary Diagnoses/Problems: TIA Right carotid artery stenosis Anemia Afib Procedures: BILATERAL CAROTID DOPPLER STUDY HISTORY: Mental status change Stroke COMPARISON: None. TECHNIQUE: Real-time, grayscale, and color Doppler sonography of the carotid arteries was performed. Imaging reviewed in the transverse and longitudinal planes. All measurements were calculated based on NASCET criteria. FINDINGS: Antegrade flow is seen in the bilateral vertebral arteries. The brachial pressures are hemodynamically similar. Moderate plaque formation bilaterally The peak systolic velocity within the right ICA is 152. The right systolic ratio is 2.7. The peak systolic velocity within the left ICA is 19. The left systolic ratio is 1.3. 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 Moderate plaque formation bilaterally Electronically signed by: Gary Long M.D. CT HEAD WITHOUT CONTRAST (CT) CLINICAL HISTORY: Transient ischemic attack COMPARISON STUDY: 06/23/2016 TECHNIQUE: Axial CT of the brain is performed from the vertex to the skull base. IV contrast was not administered for this examination. CT DOSE: 537.48 mGy.cm FINDINGS: No intra or extra-axial mass lesions are visualized. There is no CT evidence of acute cortical infarction. There is no evidence of midline shift. There is no acute hemorrhage. No calvarial fractures are visualized. There are patchy white matter hypodensities likely on a small vessel basis. There is an old lacunar infarct within the right lentiform nucleus, left external capsule. There is mild ventricular prominence in proportion to the degree of volume loss. There is no evidence of acute sinusitis IMPRESSION: No acute intracranial findings Electronically signed by: Martin Elizabeth M.D. 06/24/2016 5:53 PM Consultations: Neurology Wound care Medication Reconciliation Continued Medications: Atorvastatin (Lipitor) 10 Mg Tab 10 MG PO HS, TAB Bimatoprost (Lumigan) 0.01 % Mine 1 DROPS OPB HS for 30 Days, #2.5 ML 3 Refills Brinzolamide Oph (Azopt Oph) 1 % L[place] 1 DROP OPB HS, BTL Finasteride (Finasteride) 5 Mg Tab 5 MG PO DAILY Fish Oil (Rome-3) 1 Ea Cap 1 CAP PO QAM, CAP Lisinopril (Zestril) 20 Mg Tab 20 MG PO QAM, TAB Lorazepam (Ativan) 1 Mg Tab 1 MG PO HS, TAB Metoprolol Succinate (Toprol Xl) 50 Mg Tabcr 50 MG PO QAM, #30 TAB Multivitamin (Multivitamin) Tab 1 TAB PO QAM, TAB Nystatin (Topical) (Nystatin) 100,000 Unit/Gm Oin 1 APPLN TOP BID for 14 Days, #15 GM 1 Refill cleanse penile discharge bid with normal saline followed by application of nystatin cream for 14 days Tamsulosin Hcl (Flomax) 0.4 Mg Cap 0.4 MG PO QAM, CAP Timolol Gfs 0.5% Oph (Timoptic-Xe 0.5% Oph) Soln 1 DROP OPR HS Wound Dressings (Allevyn Adhesive) 1 Pad Pad 1 APPLN EXT UD Apply to right hip every 3 days. Admission Information HPI (per Admitting provider): This is an 85 year old male with PMH of chronic atrial fibrillation, CAD s/p CABG, MD 2, HTN, HL, Alzheimer's dementia, chronic oreilly catheter, and other problems listed below who presents to ED with left sided weakness. Patient recently admitted from Jun 14- for hematuria in setting of supratherapeutic INR, acute on chronic anemia requiring 1 unit pRBC transfused. Patient's Coumadin was discontinued and aspirin held with plan to restart once H/H stable and hematuria resolved. He is planned for cystoscopy on 06/30/2016. After discharge to [facility] had gastroenteritis symptoms from -- vomiting , diarrhea, fever 101.6, which resolved. Appetite still poor. He went to bed last night feeling at baseline with no focal weakness. Then he awoke at 6 am with left leg weakness, which worsened at 10 am while doing PT. He was seen by Dr. Saravia at [facility] and was noted to have mild L side facial droop, left arm and left leg focal weakness. Patient states weakness resolved at 12 pm. Family had noted facial droop intermittently in the past. Speech is at baseline. No swallowing difficulty, focal numbness, headache. Daughter at bedside who is a nurse states he has black stools for about 1 week. Not currently having gross hematuria. Physical Exam (per Admitting): General Appearance: WD/WN, no apparent distress, + pertinent finding (alert cooperative elderly male, family at bedside) Head: normocephalic, atraumatic Eyes: normal inspection, PERRL, EOMI, + pertinent finding (right eye blind- chronic) ENT: normal ENT inspection, hearing grossly normal, pharynx normal Neck: supple, trachea midline Respiratory/Chest: lungs clear, normal breath sounds, no respiratory distress, no accessory muscle use Cardiovascular: no murmur, + irregularly irregular Abdomen/GI: normal bowel sounds, non tender, soft Genitourinary - Male: + pertinent finding (oreilly draining yellow urine) Extremities/Musculoskelatal: no calf tenderness, no pedal edema Neurologic/Psych: 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 ), alert, normal mood/affect, + pertinent finding (oriented to person and place, knows month but not year- baseline per family. finger to nose intact bilat) Skin: normal color, warm/dry, + pertinent finding (abrasion on right hip without erythema or drainage) Hospital Course Stroke like symptoms Possible TIA. Symptoms resolved. 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 Moderate plaque formation bilaterally Symptoms resolved D/C aspirin yesterday because hgb dropped to 9.2 recent admission for hematuria, schedule for cystoscopy on 06/30 Can be assessed by PCP if cysto negative and hemoglobin stable to consider to restart ASA or coumadin Today Hgb 9.9 Neurology consulted Continue PT/OT eval ECHO done Conclusions -- * The left ventricle is mildly dilated. * Left ventricular systolic function is mildly reduced. * Ejection Fraction = 40-45%. * There is moderate to severe septal hypokinesis. * Apical wall motion abnormality may reflect pacemaker activation. * There is mild global hypokinesis of the left ventricle. * There is moderate concentric left ventricular hypertrophy. * Mild aortic regurgitation. * No hemodynamically significant valvular aortic stenosis. * There is moderate mitral regurgitation. * The left atrium is moderately dilated. * There is moderate tricuspid regurgitation. * The right atrium is moderately dilated. * Right ventricular systolic pressure is elevated at 40-50mmHg. * There is a pacemaker lead in the right ventricle. Right Carotid Stenosis carotid u/s showed 50/60% narrowing right internal carotid artery. Moderate plaque formation bilaterally Finding discussed with daughter Will need to follow yearly and if stenosis is greater than 70% to refer to vascular UA ABNORMAL Has indwelling [place] UA shows occult blood, leuk esterase, WBC's, RBCs, epithelial cells, bacteria, yeast Afebrile, no leukocytosis Urine cx grew yeast Asymptomatic. No treatment ANEMIA Hg low as 7.9 last admission from acute blood loss from hematuria- has plan for cystoscopy on 06/30/2016 w/ Dr. Dias Hg on admission 10.6 today hgb 9.9 Continue to hold on aspirin. 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 Discharge Instructions Admission Reason for Admission: Stroke-Like Symptoms Discharge Discharge Diagnosis / Problem: TIA, Right carotid artery stenosis, Anemia, Afib Discharge Goals Goal(s): Decrease discomfort, Improve function, Improve disease control Activity Recommendations Activity Limitations: resume your previous activity (as tolerated) . Instructions / Follow-Up Instructions / Follow-Up Discharge to [facility] Continue PT/OT eval Follow up on right internal carotid artery narrowing with carotid u/s in 6 to 12 months fall precaution Current Hospital Diet Patient's current hospital diet: Regular Diet Discharge Diet Recommended Diet: AHA Diet (Heart Healthy), Low Sodium Diet (2gm Na) Pending Studies Studies pending at discharge: no Laboratory Results Hemoglobin A1c Test 06/23/16 11:40 Range/Units Estimated Average Glucose 123 mg/dl Hemoglobin A1c 5.9 H 4.5-5.6 % Lipid Panel Test 06/24/16 05:20 Range/Units Triglycerides Level 110 0-150 mg/dl Cholesterol Level 67 0-200 mg/dl HDL Cholesterol 25 mg/dl Cholesterol/HDL Ratio 2.7 LDL Cholesterol, Calculated 20 mg/dl Medical Emergencies . Who to Call and When: Medical Emergencies: If at any time you feel your situation is an emergency, please call 911 immediately. . Non-Emergent Contact Non-Emergency issues call your: Primary Care Provider Call Non-Emergent contact if: you have any medication questions . . "Provider Documentation" section prepared by Tg Garcia. VTE Core Measure Inpt VTE Proph given/why not?: SCD's Additional Copies To John Saravia M.D., Diann, M.D.
== END 2016-06-25 17:00 | DRG 69 ==
LOC: ENRESERVTM → ENRESERVDT → EDBD 11:31 → C.EDC 11:33 → C.MED 15:21
PROVIDERS: ADMIT Internal Medicine; ATTEND Internal Medicine
DX: G45.9 Transient cerebral ischemic attack, unspecified (principal); D62 Acute posthemorrhagic anemia; B37.49 Other urogenital candidiasis; R53.1 Weakness; R29.810 Facial weakness; R31.9 Hematuria, unspecified; S70.211A Abrasion, right hip, initial encounter; W19.XXXA Unspecified fall, initial encounter; I48.2 Chronic atrial fibrillation; I25.10 Atherosclerotic heart disease of native coronary artery without angina pectoris; I10 Essential (primary) hypertension; E78.5 Hyperlipidemia, unspecified; E11.9 Type 2 diabetes mellitus without complications; G30.9 Alzheimer's disease, unspecified; F02.80 Dementia in other diseases classified elsewhere, unspecified severity, without behavioral disturbance, psychotic disturbance, mood disturbance, and anxiety; H54.41 Blindness, right eye, normal vision left eye; Z66 Do not resuscitate; Z95.1 Presence of aortocoronary bypass graft; Z96.0 Presence of urogenital implants; Z87.891 Personal history of nicotine dependence; Z79.899 Other long term (current) drug therapy